=== PATIENT | female | born 2000 | race Caucasian/White ===

== ENCOUNTER → 2022-05-31 | Outpatient (REF) | payer BC | LOC: M LAB REF 19:00 | PROVIDERS: ATTEND Physician Assistant Medical | DX: R07.0 Pain in throat (principal) ==

== ENCOUNTER → 2022-07-28 | Outpatient (CLI) | payer BC ==
[2022-07-28 18:20] LABS: BASO % 0.5 % (0.0-1.0); EOS # 0.1 10^3/uL (0.0-0.5); EOS % 1.8 % (0.0-3.0); HEMATOCRIT 40.6 % (36.0-47.0); LYMPH # 1.3 10^3/uL (1.5-5.0); LYMPH % 20.3 % (24.0-44.0); MEAN CORPUSCULAR HGB CONC 34.5 g/dl (32.0-36.5); MEAN CORPUSCULAR VOLUME 87.1 fl (80.0-96.0); MONO # 0.4 10^3/uL (0.0-0.8); MONO % 6.5 % (2.0-8.0); NEUTROPHILS # 4.3 10^3/uL (1.5-8.5); NEUTROPHILS % 70.4 % (36.0-66.0); PLATELET COUNT, AUTOMATED 231 10^3/uL (150-450); RED BLOOD COUNT 4.66 10^6/uL (4.00-5.40); WHITE BLOOD COUNT 6.2 10^3/uL (4.0-10.0)
[2022-07-28 18:45] LABS: ERYTHROCYTE SEDIMENTATION RATE 11 mm/hr (0-20)
[2022-07-28 18:48] LABS: ALKALINE PHOSPHATASE 77 U/L (46-116); ALT/SGPT 28 U/L (7.0-40); AST/SGOT 20 U/L (<34); BILIRUBIN,TOTAL 0.9 MG/DL (0.3-1.2); BLOOD UREA NITROGEN 10 MG/DL (9-23); CALCIUM LEVEL 8.8 MG/DL (8.5-10.1); CARBON DIOXIDE LEVEL 26 MMOL/L (20-31); CHLORIDE LEVEL 105 MMOL/L (98-107); CREATININE FOR GFR 0.57 MG/DL (0.55-1.30); GLUCOSE, FASTING 102 MG/DL (60-100); SODIUM LEVEL 138 MMOL/L (136-145); TOTAL PROTEIN 7.4 G/DL (5.7-8.2)
[2022-07-28 18:49] LABS: FOLATE 18.33 NG/ML (>5.4); RHEUMATOID FACTOR QUANT 4.7 IU/ML (<14)
[2022-07-28 18:50] LABS: THYROID STIMULATING HORMONE 1.306 uIU/ML (0.48-4.17); TOTAL 25(OH) VITAMIN D 13.5 NG/ML (20.0-100.0); VITAMIN B12 LEVEL 350 PG/ML (211-911)
[2022-07-31 18:07] LABS: ANTINUCLEAR ANTIBODIES DIRECT Negative (Negative); VITAMIN B1 LEVEL WHOLE BLOOD 120.1 nmol/L (66.5-200.0); VITAMIN B6,PYRIDOXAL PHOSPHATE 11.4 ug/L (3.4-65.2); VITAMIN E(GAMMA TOCOPHEROL) 1.2 mg/L (0.7-4.9)
== END ==
LOC: M LAB 16:53
PROVIDERS: ATTEND Psychiatry & Neurology Neurology
DX: R51.9 Headache, unspecified (principal); M79.2 Neuralgia and neuritis, unspecified